=== PATIENT | male | born 1985 | race Caucasian/White ===

== ENCOUNTER 2017-07-29 19:40 | Emergency (ER) | payer OTHER ==
[2017-07-29] MEDS ORDERED: Lidocaine 1% 30 ML SDV INJECT ONE (20:54)
[2017-07-29] MEDS ORDERED: Diphtheria,Pertussis(Acell),Tetanus Vaccine 0.5 ML Syringe IM ONE (20:59)
--- NOTE | 2017-08-01 09:11 | EDM.PDOC ---
ED HPI GENERAL MEDICAL PROBLEM - General Chief Complaint: Laceration Stated Complaint: Laceration top of left hand Time Seen by Provider: 07/29/17 20:30 Source of Information: Reports: Patient History Limitations: Reports: No Limitations - History of Present Illness INITIAL COMMENTS - FREE TEXT/NARRATIVE: Pt. states that he was using a sawzall and sustained a laceration to the dorsum of his L hand. He states that this happened just prior to coming the the ER. He states that he is not experiencing any issues with movement of the digits of the hand. Denies any injury other than what is isolated to the L hand. 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 [No Known Home Meds] 12/21/15 [History] Past Medical History HEENT History: Reports: Epistaxis ED ROS GENERAL - Review of Systems Review Of Systems: See Below Musculoskeletal: Reports: Hand Pain Neurological: Reports: No Symptoms ED EXAM, SKIN/RASH Exam: See Below Exam Limited By: No Limitations General Appearance: Alert, WD/WN, No Apparent Distress Extremities: Normal Range of Motion, Other (2 cm laceration to dorsum of L hand) Neurological: Alert, Oriented, CN II-XII Intact, Normal Cognition, Normal Gait, Normal Reflexes, No Motor/Sensory Deficits Skin: Warm, Dry, Intact, Normal Color, No Rash ED SKIN PROCEDURES - Laceration/Wound Repair Left Posterior Hand Appearance: Subcutaneous, Mildly Contaminated Distal NVT: Neuro & Vascular Intact, No Tendon Injury Anesthetic Type: Local Local Anesthesia - Lidocaine (Xylocaine): 1% Plain Local Anesthetic Volume: 4cc Skin Prep: Chlorhexidine (Hibiciens), Saline Saline Irrigation (cc's): 500 Exploration/Debridement/Repair: Wound Explored, Minimal Debridement Closed with: Sutures Suture Size: 4-0 Suture Type: Nylon Course - Vital Signs Last Recorded V/S: Last Vital Signs Temp 36.6 C 07/29/17 20:15 Pulse 72 07/29/17 20:15 Resp 16 07/29/17 20:15 BP 135/90 07/29/17 20:15 Pulse Ox 98 07/29/17 20:15 - Orders/Labs/Meds Meds: Medications Discontinued Medications Generic Name Dose Route Start Last Admin Trade Name Michelle PRN Reason Stop Dose Admin Diphtheria/Tetanus/Acell Pertussis 0.5 ml 07/29/17 20:59 07/29/17 21:13 Adacel IM 07/29/17 21:00 0.5 ml .ONCE ONE Administration Lidocaine HCl 30 ml 07/29/17 20:54 07/29/17 21:00 Xylocaine-Mpf 1% INJECT 07/29/17 20:55 3.5 ml ONETIME ONE Administration Departure - Departure Time of Disposition: 21:25 Disposition: Home, Self-Care 01 Clinical Impression: Laceration - Discharge Information Instructions: Laceration Care, Adult Referrals: PCP,None [Primary Care Provider] - Forms: ED Department Discharge Additional Instructions: Sutures out in 10 days. Return if redness, swelling, or discharge from the area. Keep covered if you anticipate it getting dirty, otherwise keep open to air. Keep dry for 24 hours.
== END 2017-07-29 21:25 | disposition home or self-care (01) ==
LOC: VM.ED 19:40
DX: S61.412A Laceration without foreign body of left hand, initial encounter (principal); Z23 Encounter for immunization; W26.8XXA Contact with other sharp object(s), not elsewhere classified, initial encounter
CPT/HCPCS: 12001; 90471; 90715; 99282